=== PATIENT | male | born 1980 | race Caucasian/White ===

== ENCOUNTER 2023-03-06 22:15 | Emergency (ER) | payer SELFPAY ==
--- NOTE | 2023-03-06 22:50 | EDPHYS ---
Physician Documentation [facility] Name: Joey Gutierrez Age: 42 yrs Sex: Male : 1980 Arrival Date: 03/06/2023 Time: 22:15 Bed IW1 Private MD: ED Physician Evan Dalton HPI: 03/07 01:04 This 42 yrs old Male presents to ER via Ambulatory with complaints of Drug Abuse, rt Altered Mental Status, HALLUCINATIONS. 01:04 Patient presents to the ED with reported hallucinations after taking methamphetamines rt for the first time in about 4 years 2 days ago. He states that these have never occurred to him before when he was taking methamphetamines daily. He states he is concerned that he may have been dosed with fentanyl. Denies other acute complaints at this time. Symptoms are moderate severity, no other aggravating alleviating factors. ROS: 01:04 Constitutional: Negative for fever, chills, and weight loss, Cardiovascular: Negative rt for chest pain, palpitations, and edema, Respiratory: Negative for shortness of breath, cough, wheezing, and pleuritic chest pain, Abdomen/GI: Negative for abdominal pain, nausea, vomiting, diarrhea, and constipation, MS/Extremity: Negative for injury and deformity, Skin: Negative for injury, rash, and discoloration, Neuro: Negative for headache, weakness, numbness, tingling, and seizure. 01:04 Psych: Positive for auditory hallucinations, Negative for suicidal ideation. Exam: 01:04 Constitutional: This is a well developed, well nourished patient who is awake, alert, rt and in no acute distress. Head/Face: Normocephalic, atraumatic. Chest/axilla: Normal chest wall appearance and motion. Nontender with no deformity. No lesions are appreciated. Cardiovascular: Regular rate and rhythm with a normal S1 and S2. No gallops, murmurs, or rubs. Normal PMI, no JVD. No pulse deficits. Respiratory: Lungs have equal breath sounds bilaterally, clear to auscultation and percussion. No rales, rhonchi or wheezes noted. No increased work of breathing, no retractions or nasal flaring. Abdomen/GI: Soft, non-tender, with normal bowel sounds. No distension or tympany. No guarding or rebound. No evidence of tenderness throughout. Skin: Warm, dry with normal turgor. Normal color with no rashes, no lesions, and no evidence of cellulitis. MS/ Extremity: Pulses equal, no cyanosis. Neurovascular intact. Full, normal range of motion. Neuro: Awake and alert, GCS 15, oriented to person, place, time, and situation. Cranial nerves II-XII grossly intact. Motor strength 5/5 in all extremities. Sensory grossly intact. Cerebellar exam normal. Normal gait. Psych: Awake, alert, with orientation to person, place and time. Behavior, mood, and affect are within normal limits. Vital Signs: 03/06 22:25 BP 122 / 85; Pulse 91; Resp 16; Temp 97.9; Pulse Ox 97% on R/A; Weight 117.93 kg; iw Height 6 ft. 2 in. ; 22:25 Body Mass Index 33.38 (117.93 kg, 187.96 cm) iw MDM: 22:31 Patient medically screened. rt 03/07 01:04 Data reviewed: vital signs, nurses notes. ED course: Patient presents to the ED with rt reported hallucinations after taking amphetamines. Patient requesting UDS to rule out fentanyl. Labs, EKG were ordered. Patient left from the waiting room without informing after my evaluation, however, before any diagnostic studies could be performed.. 03/06 22:35 Order name: EKG; Complete Time: 22:36 rt 03/06 22:35 Order name: EKG - Nurse/Tech rt 03/06 22:35 Order name: IV Saline Lock rt 03/06 22:35 Order name: Labs collected and sent rt 03/06 22:35 Order name: Suicide Screening ([place]) rt Administered Medications: 03/06 23:40 Not Given (pt left ): NS 0.9% IV 1000 ml IV at 1 bolus Per protocol; 1000 mL bolus iw Disposition Summary: 03/06/23 22:49 Discharge Ordered Location: Home rt Problem: new rt Symptoms: are unchanged rt Condition: Undetermined rt Diagnosis - Methamphetamine abuse rt Followup: rt - With: Private Physician - When: As needed - Reason: Forms: - Medication Reconciliation Form rt - Thank You Letter rt - Antibiotic Education rt - Prescription Opioid Use rt - Patient Portal Instructions rt Signatures: Dispatcher [employer] EDLA Evan Dalton MD MD rt Christal Macias RN iw
--- NOTE | 2023-03-06 22:50 | ER ---
Nurse's Notes [facility] Name: Joey Gutierrez Age: 42 yrs Sex: Male : 1980 Arrival Date: 03/06/2023 Time: 22:15 Bed IW1 Private MD: Diagnosis: Methamphetamine abuse Presentation: 03/06 22:25 Chief complaint: Patient states: relapsed on meth for past two days, I can't stop iw hallucinating and my lips turn numb, I just wanna get checked and make sure it's not fentanyl, also he's been vomiting all day. Coronavirus screen: At this time, the client does not indicate any symptoms associated with coronavirus-19. Ebola Screen: Patient negative for fever greater than or equal to 101.5 degrees Fahrenheit, and additional compatible Ebola Virus Disease symptoms Patient denies exposure to infectious person. Patient denies travel to an Ebola-affected area in the 21 days before illness onset. No symptoms or risks identified at this time. Initial Sepsis Screen: Does the patient meet any 2 criteria? No. Patient's initial sepsis screen is negative. Does the patient have a suspected source of infection? No. Patient's initial sepsis screen is negative. Risk Assessment: Do you want to hurt yourself or someone else? Patient reports no desire to harm self or others. Onset of symptoms was March 04, 2023. 22:25 Method Of Arrival: Ambulatory iw 22:25 Acuity: RAFFI 3 iw Assessment: 22:45 Reassessment: pt not in lobby , pts in lobby reports he left with his friend. iw Vital Signs: 22:25 BP 122 / 85; Pulse 91; Resp 16; Temp 97.9; Pulse Ox 97% on R/A; Weight 117.93 kg; iw Height 6 ft. 2 in. ; 22:25 Body Mass Index 33.38 (117.93 kg, 187.96 cm) iw ED Course: 22:18 Patient arrived in ED. [id number] 22:26 Triage completed. iw 22:29 Evan Dalton MD is Attending Physician. rt 22:53 Christal Macias, RN is Primary Nurse. iw Administered Medications: 23:40 Not Given (pt left ): NS 0.9% IV 1000 ml IV at 1 bolus Per protocol; 1000 mL bolus iw Outcome: 22:49 Discharge ordered by . rt 22:53 Patient left the ED. iw Signatures: Christal Macias RN RN iw Ericka Laws [id number] Evan Dalton MD MD rt
[2023-03-06 23:28] VITALS: BP 122/85; TEMP 97.9; O2SAT 97
== END 2023-03-06 22:53 | disposition home or self-care (01) ==
LOC: ER 22:15
DX: F15.10 Other stimulant abuse, uncomplicated (principal)